=== PATIENT | female | born 1995 | race Caucasian/White ===

== ENCOUNTER 2016-10-15 10:05 | Day surgery (SDC) | payer BC ==
[~2016-10-15] VITALS: Ht 167.6 cm; Wt 89.8 kg
[~2016-10-15 10:05] MED LIST: ALBUTEROL; ATIVAN; DULERA 100 MCG8.8 GM INH; [UNRECOGNIZED DRUG - OTHER]
[2016-10-15] MEDS ORDERED: ALBUTEROL1.25 MG/3 INH (13:48)
[2016-10-15 13:50] VITALS: BP 105/60; Ht 167.6 cm; Wt 89.8 kg
[2016-10-15 14:01] LABS: HCG URINE NEGATIVE (NEGATIVE)
[2016-10-15] MEDS ORDERED: PERCOCET 10/3251 TA1 PO (15:03)
--- NOTE | 2016-10-17 15:22 | OP ---
PATIENT NAME: BENJY CONNOLLY MEDICAL RECORD: [id number] :89 LOCATION:D.OPS ADMISSION DATE: SURGEON: DEANN YAN MD DATE OF OPERATION: 10/15/2016 Orthopedic Surgery Operative Note PREOPERATIVE DIAGNOSIS: De Quervain's tenosynovitis of the right wrist. POSTOPERATIVE DIAGNOSES: De Quervain's tenosynovitis of the right wrist. PROCEDURE: De Quervain's release. SURGEON: Deann Yan MD ANESTHESIA: General. INTRAOPERATIVE COMPLICATIONS: None. SUMMARY OF PATHOLOGIC FINDINGS: She had a very tight extensor compartment consistent with diagnosis of Moo positive testing. OPERATIVE SUMMARY IN DETAIL: After obtaining the appropriate preoperative orthopedic surgery consent as well as anesthetic consultation, evaluation and clearance, the patient was brought to the operating room and placed on the operating table in supine position. After general laryngeal mask airway was administered, tourniquet was placed about the proximal aspect of the right upper extremity. Right upper extremity was then prepped and draped in routine sterile fashion. The arm was elevated and exsanguinated, tourniquet inflated to 250 mmHg. An incision was made over the radial styloid, taken down to the level of the extensor compartment. It was gently incised to find a substantial amount of synovitis. It was excised in its entirety. Synovitis was excised. Please note that the radial nerve was found and protected the entire case. Having completed this, irrigation was then followed by closure of the wound using 4-0 Prolene in interrupted fashion. The area was locally anesthetized with 0.25% Marcaine plain. Sterile dressings were applied. Tourniquet was deflated. The patient was awakened and taken to the recovery room in stable condition. All final needle and sponge counts were correct. TRANSINT:[id number] Voice Confirmation ID: [id number] DOCUMENT ID: [id number] DEANN YAN MD at 1522 CC: [id number] DICTATION DATE: 10/15/16 1459 PRODUCT OWNER: 10/16/16 0017 [facility] 10/15/16 [place] [address]
== END 2016-10-15 17:30 | disposition home or self-care (01) ==
LOC: D.OPS 10:05 → D.PAN 12:30 → D.OPS 12:30 → D.PAN 12:45 → D.OPS 14:45 → D.PAN 14:45 → D.OPS 17:30
PROVIDERS: Orthopaedic Surgery
DX: M65.4 Radial styloid tenosynovitis [de Quervain] (principal)

== ENCOUNTER 2018-07-24 11:08 | Day surgery (SDC) | payer OTHER, BC ==
[~2018-07-24] VITALS: Ht 170.2 cm; Wt 95.7 kg
[~2018-07-24 11:08] MED LIST changes: +ADVAIR HFA [SP]12 GM INH; +ALBUTEROL1.25 MG/3 INH; +LEXAPRO10 MG; +PERCOCET 10/3251 TA1 PO
[2018-07-24 12:01] LABS: HEMOGLOBIN 14.3 g/dL (12-16); MCV 88.2 fL (80.0-100.0); MEAN PLATELET VOLUME 9.4 fL (7.4-10.4); RBC 4.76 10x6/uL (4.00-5.40); RDW 12.4 % (11.5-14.5); WBC 6.8 10x3/uL (4.8-10.8)
[2018-07-24] MEDS ORDERED: AMBIEN10 MG PO (13:51)
[2018-07-24 13:54] VITALS: BP 105/63; Ht 170.2 cm; Wt 95.7 kg
[2018-07-24 14:19] LABS: HCG URINE NEGATIVE (NEGATIVE)
[2018-07-24] MEDS ORDERED: NORCO 10-325 TA1 TAB PO (16:03)
--- NOTE | 2018-07-25 14:30 | OP ---
PATIENT NAME: BENJY CONNOLLY MEDICAL RECORD: [id number] :[birth year] LOCATION:FILIBERTO ADMISSION DATE: SURGEON: DEANN YAN MD DATE OF OPERATION: 07/24/2018 PREOPERATIVE DIAGNOSIS: Radial styloid tenosynovitis of the left wrist. POSTOPERATIVE DIAGNOSIS: Radial styloid tenosynovitis of the left wrist. PROCEDURE: De Quervain's release of the left wrist. SURGEON: Deann Yan MD ANESTHESIA: General. INTRAOPERATIVE COMPLICATIONS: None. SUMMARY OF PATHOLOGIC FINDINGS: The patient had a tight first dorsal compartment consistent with the diagnosis and preoperative physical findings. OPERATIVE SUMMARY IN DETAIL: After obtaining the appropriate preoperative orthopedic surgery consent as well as anesthetic consultation, evaluation and clearance, the patient was brought to the operative suite, placed on the operating table in supine position. After adequate general laryngeal mask airway was administered, tourniquet was placed about the proximal aspect of the left upper extremity. Left upper extremity was then prepped and draped in routine sterile fashion. The arm was elevated and exsanguinated, tourniquet was inflated to 250 mmHg. An incision was made over the apex of the radial styloid, taken down the level of the first compartment. Superficial branch of the radial nerve was identified and retracted. The first dorsal compartment was released and the synovitis was noted and a portion was removed. After releasing the first dorsal interosseous compartment, the wound was closed in a running interlocked fashion using 4-0 Prolene. Sterile dressings were applied. Prior to applying sterile dressings; however, the area was locally infiltrated with 0.25% Marcaine with epinephrine. Sterile dressings were applied. Tourniquet was deflated. The patient was awakened and taken to recovery room in stable condition. All final needle and sponge counts were correct. TRANSINT:[id number] Voice Confirmation ID: [id number] DOCUMENT ID: [id number] FARRAH MARTINEZ, DEANN AQUINO at 1430 CC: [id number] DICTATION DATE: 07/24/18 1605 SPECIAL PROCEDURE TECH: 07/24/18 2140 [facility] 07/24/18 [place] [address]
== END 2018-07-24 17:50 | disposition home or self-care (01) ==
LOC: D.OPS 11:08 → D.PAN 14:15 → D.OPS 17:15
PROVIDERS: Anesthesiology; Orthopaedic Surgery
DX: M65.4 Radial styloid tenosynovitis [de Quervain] (principal)

== ENCOUNTER 2019-05-14 15:02 | Inpatient (IN) | payer OTHER, BC ==
[~2019-05-14] VITALS: Ht 167.6 cm; Wt 100.2 kg
[~2019-05-14 15:02] MED LIST changes: +AMBIEN10 MG PO; -LEXAPRO10 MG; +LEXAPRO10 MG PO; +NORCO 10-325 TA1 TAB PO
[2019-05-14 15:58] LABS: BASOPHILS 0.1 % (0-2); EOSINOPHILS 1.3 % (0-7); HEMATOCRIT 41.8 % (36.0-48.0); HEMOGLOBIN 14.1 g/dL (12-16); IMMATURE GRANULOCYTES 0.6 % (0-5); LYMPHOCYTES 23.1 % (15-50); MCH 29.8 pg (26.0-34.0); MCHC 33.7 g/dL (31.0-37.0); MCV 88.4 fL (80.0-100.0); MEAN PLATELET VOLUME 9.4 fL (7.4-10.4); MONOCYTES 8.3 % (2-11); NEUTROPHILS 66.6 % (40-80); PLATELET COUNT 313 10x3/uL (130-400); RBC 4.73 10x6/uL (4.00-5.40); RDW 12.9 % (11.5-14.5); WBC 13.9 10x3/uL (4.8-10.8)
[2019-05-14 16:00] VITALS: BP 121/73
[2019-05-14 16:02] LABS: CALC OSMOLALITY 278 mosm/kg (275-300); CALCIUM 9.2 mg/dL (8.5-10.1); CARBON DIOXIDE 25.9 mmol/L (21.0-32.0); CHLORIDE - SERUM 104 mmol/L (98-107); CREATININE - SERUM 0.8 mg/dL (0.6-1.3); GLUCOSE 108 mg/dL (74-106); POTASSIUM - SERUM 3.8 mmol/L (3.5-5.1); SODIUM 140 mmol/L (136-145); UREA NITROGEN 9 mg/dL (7-18); eGFR NON AFRICAN AMERICAN > 90 mL/min (90-120)
--- NOTE | 2019-05-14 16:14 | NUR ---
NOTIFIED BY LAB OF ELEVATED LACTIC ACID OF 2.7 CRITICAL LAB SHEET COMPLETED AND PLACED ON PT'S CHART. EDP MADE AWARE.
[2019-05-14 16:15] LABS: APTT 27.1 SECONDS (22.8-39.4); INR 0.98 (0.85-1.17); PROTIME 12.5 SECONDS (11.6-15.0)
[2019-05-14 16:20] LABS: ALBUMIN 3.7 g/dL (3.4-5.0); ALKALINE PHOSPHATASE 105 U/L (46-116); ALT (SGPT) 14 U/L (10-68); BILIRUBIN - TOTAL 0.19 mg/dL (0.2-1.3); CKMB 0.3 U/L (0.0-3.6); CREATINE KINASE 49 UL (21-215); PRO BNP 169 pg/mL (0-125); PROTEIN - SERUM 7.8 g/dL (6.4-8.2); TROPONIN-I < 0.017 ng/mL (0.000-0.060)
[2019-05-14 17:30] VITALS: BP 120/88
[2019-05-14] MEDS ORDERED: LEVOTHYROXINE75 MCG PO (18:42)
--- NOTE | 2019-05-14 18:48 | MORECARE ---
CASE MANAGEMENT DISCHARGE SUMMARY PATIENT: BENJY CONNOLLY UNIT: [id number] ADM DATE: 05/14/19 AGE: 23 : 95 SEX: F ROOM/BED: D.2240 AUTHOR: AIDEN BERMAN PHYSICIAN: REFERRING PHYSICIAN: JAMES RETANA MD DATE OF SERVICE: 05/14/19 Discharge Plan Patient Name: BENJY CONNOLLY Facility: [facility]:[place] : 1995 Planned Disposition: Home Anticipated Discharge Date: 05/18/19 Discharge Date: Expected LOS: 4 Initial Reviewer: [email or web address] Initial Review Date: 05/14/2019 Generated: 05/14/19 7:48 pm DCPIA - Discharge Planning Initial Assessment Updated by [email or web address]: Cecelia Celaya on 05/14/19 6:47 pm * Is the patient Alert and Oriented? Yes * PCP Dr. Maldonado * Pharmacy [facility] * Preadmission Environment Home with Family * ADLs Independent * Equipment Nebulizer * List name and contact numbers for known caregivers / representatives who currently or will assist patient after discharge: Panda Almanza katlynerie - [phone] Radha Connolly - [phone] * Verbal permission to speak to the caregivers and representatives has been obtained from the patient. Yes * Community resources currently utilized None * Additional services required to return to the preadmission environment? No * Can the patient safely return to the preadmission environment? Yes * Has this patient been hospitalized within the prior 30 days at any hospital? No Patient Name: BENJY CONNOLLY Page [id number] at 1848 All edits/amendments must be made on the electronic document DICTATION DATE: 05/14/191847 RADIO REPAIRER DOMESTIC: FARZANEH 05/14/191847 RPT#: [id number] DC DATE: STATUS: ADM IN [facility] [address] [place] [address] END OF REPORT
--- NOTE | 2019-05-14 19:09 | MORECARE ---
CASE MANAGEMENT DISCHARGE SUMMARY PATIENT: BENJY CONNOLLY UNIT: [id number] ADM DATE: 05/14/19 AGE: 23 : 95 SEX: F ROOM/BED: D.2240 AUTHOR: AIDEN BERMAN PHYSICIAN: REFERRING PHYSICIAN: JAMES RETANA MD DATE OF SERVICE: 05/14/19 Discharge Plan Patient Name: BENJY CONNOLLY Facility: [facility]:[place] : 1995 Planned Disposition: Home Anticipated Discharge Date: 05/18/19 Discharge Date: Expected LOS: 4 Initial Reviewer: [email or web address] Initial Review Date: 05/14/2019 Generated: 05/14/19 8:09 pm DCP- Discharge Planning Updated by [email or web address]: Cecelia Celaya on 05/14/19 6:[address] DC PLAN: Return home independently. ANTICIPATED DC NEEDS: discussed pulse ox and qualifications for O2 requirements. CM met with patient and her boyfriend to complete initial dc planning assessment. CM educated patient on the CM role and verbal consent given by patient to complete assessment. CM verified patient's address, phone number, and emergency contact phone numbers. Patient lives at home with her boyfriend. At discharge patient plans to return home and feels this is a safe discharge. Patient very winded and having difficulties answering questions. She can only answer in short words or phrases. She stated she has had 3 updrafts but that she was doing better. Cm asked if I needed to get the nurse caring for her and she stated no. CM discussed availability of home health, rehab services, and medical equipment. She stated she may need a pulse or or oxygen at vt. CM discussed that insurance does not cover pulse ox but informed her she could purchase one at [facility] or [facility]. She also stated she may need oxygen and cm discussed requirements to qualify for O2. She verbalized understanding. Patient denied further known discharge needs at this time. Transportation provider at discharge will be her boyfriend. CM will continue to follow and will assist as needed with dc plans/needs. Cecelia Celaya RN, [facility] DCPIA - Discharge Planning Initial Assessment Updated by [email or web address]: Cecelia Celaya on 05/14/19 6:47 pm * Is the patient Alert and Oriented? Yes * PCP Dr. Maldonado * Pharmacy [facility] * Preadmission Environment Home with Family * ADLs Independent * Equipment Nebulizer * List name and contact numbers for known caregivers / representatives who currently or will assist patient after discharge: Panda cortezienanai - [phone] Radha Connolly - [phone] * Verbal permission to speak to the caregivers and representatives has been obtained from the patient. Yes * Community resources currently utilized None * Additional services required to return to the preadmission environment? No * Can the patient safely return to the preadmission environment? Yes * Has this patient been hospitalized within the prior 30 days at any hospital? No Last DP export: 05/14/19 5:48 Patient Name: BENJY CONNOLLY Page [id number] at 1909 All edits/amendments must be made on the electronic document DICTATION DATE: 05/14/191908 MACHINE FEEDER RAW STOCK: FARZANEH 05/14/191908 RPT#: [id number] DC DATE: STATUS: ADM IN [facility] [address] [place] [address] END OF REPORT
[2019-05-14 19:30] VITALS: BP 128/87
--- NOTE | 2019-05-14 21:20 | NUR ---
A&O X 4, AMBULATORY AD RAFAL. VS STABLE. PT APPEARS SOB, SPO2 97% ON ROOM AIR. FAMILY AT BEDSIDE. REQUESTS TO RECEIVE BENADRYL AT A LATER TIME. NICOTINE PATCH APPLIED TO RIGHT UPPER ARM. PT REPORTS SHE CURRENTLY HAS A YEAST INFECTION. DENIES FURTHER NEEDS AT THIS TIME, WILL CONTINUE TO MONITOR.
[2019-05-14 22:34] VITALS: BP 128/87; BMI 32.3
[2019-05-15] VITALS: BP 129/79
[2019-05-15 00:33] LABS: APPEARANCE CLEAR (CLEAR); BILIRUBIN NEGATIVE (NEGATIVE); COLOR YELLOW (YELLOW); GLUCOSE NEGATIVE (NEGATIVE); KETONE NEGATIVE (NEGATIVE); NITRITE NEGATIVE (NEGATIVE); PROTEIN NEGATIVE (NEGATIVE); SPECIFIC GRAVITY 1.015 (1.005-1.020); UROBILINOGEN NORMAL (NORMAL)
[2019-05-15 00:34] LABS: BACTERIA FEW /hpf (NEGATIVE); EPITHELIAL CELLS 0-5 /hpf (0-5); RED CELLS - URINE 0-5 /hpf (0-5); WHITE CELLS - URINE 0-5 /hpf (NEGATIVE)
[2019-05-15 06:37] LABS: BASOPHILS 0 % (0-2); EOSINOPHILS 0 % (0-7); HEMATOCRIT 38.4 % (36.0-48.0); HEMOGLOBIN 12.3 g/dL (12-16); IMMATURE GRANULOCYTES 0.5 % (0-5); LYMPHOCYTES 14.3 % (15-50); MCH 28.9 pg (26.0-34.0); MEAN PLATELET VOLUME 9.4 fL (7.4-10.4); MONOCYTES 2.2 % (2-11); PLATELET COUNT 258 10x3/uL (130-400); RBC 4.25 10x6/uL (4.00-5.40); RDW 13.1 % (11.5-14.5)
[2019-05-15 06:47] LABS: MCV 90.4 fL (80.0-100.0); WBC 7.9 10x3/uL (4.8-10.8)
[2019-05-15 07:11] LABS: CALC OSMOLALITY 282 mosm/kg (275-300); CALCIUM 8.4 mg/dL (8.5-10.1); CHLORIDE - SERUM 106 mmol/L (98-107); CREATININE - SERUM 0.7 mg/dL (0.6-1.3); GLUCOSE 187 mg/dL (74-106); MAGNESIUM - SERUM 1.9 mg/dL (1.8-2.4); PHOSPHOROUS 3.8 mg/dL (2.5-4.9); POTASSIUM - SERUM 4.6 mmol/L (3.5-5.1); SODIUM 140 mmol/L (136-145); THYROID STIMULATING HORMONE 2.31 uIU/mL (0.36-3.74); UREA NITROGEN 10 mg/dL (7-18); eGFR NON AFRICAN AMERICAN > 90 mL/min (90-120)
[2019-05-15 08:07] VITALS: BP 137/85
--- NOTE | 2019-05-15 09:10 | NUR ---
PT SITTING UP IN BED. RESP SHALLOW AND RAPID. PT VOICES JUST HAVING RETURNED TO BED FROM BR. PT RESP SLOW PT REST. IV TO RIGHT HAND WITH NS @ 50ML/HR INFUSING VIA PUMP. SITE WITHOUT REDNESS OR EDEMA. REPORTS PAIN 10/10, DISCUSSED NEXT TIME PAIN MED CAN BE ADMINISTERED PER MD ORDERS. PT VOICES UNDERSTANDING. DENIES FURTHER NEEDS AT THIS TIME. CL WITHIN REACH. ENCOURAGED TO CALL WITH NEEDS. CONTINUE POC
[2019-05-15 12:58] VITALS: BP 154/82
[2019-05-15 17:43] VITALS: BP 141/81
[2019-05-15 21:16] VITALS: BP 152/93
[2019-05-16 01:23] VITALS: BP 128/75
--- NOTE | 2019-05-16 05:45 | NUR ---
PATIETIENTS HEART RATE WAS RUNNING IN THE 40'S, PATIENT DIAPHORETIC AND SHORT OF BREATHE. PATIENT COMPLAINING OF CHEST PAIN. TALKED TO CHARGE NURSE. 0554 CALLED A RAPID RESPONSE. CHECKED PATIENTS HEART ENZYMES AND RAN AN EKG.WAISTED WHOLE BOTTLE OF LORAZEPAM DUE TO WAS NOT ABLE TO GIVE PATIENT ANY MEDICINE AT THIS TIME BECAUSE OF LOW HEART RATE.
[2019-05-16 06:42] LABS: BASOPHILS 0.1 % (0-2); EOSINOPHILS 0 % (0-7); HEMATOCRIT 41.3 % (36.0-48.0); HEMOGLOBIN 13.4 g/dL (12-16); IMMATURE GRANULOCYTES 1.1 % (0-5); LYMPHOCYTES 12.5 % (15-50); MCHC 32.4 g/dL (31.0-37.0); MCV 92.4 fL (80.0-100.0); MONOCYTES 6.3 % (2-11); PLATELET COUNT 356 10x3/uL (130-400); RBC 4.47 10x6/uL (4.00-5.40); RDW 13.5 % (11.5-14.5); WBC 16.8 10x3/uL (4.8-10.8)
[2019-05-16 07:18] LABS: CALC OSMOLALITY 284 mosm/kg (275-300); CALCIUM 8.9 mg/dL (8.5-10.1); CARBON DIOXIDE 24.5 mmol/L (21.0-32.0); CHLORIDE - SERUM 107 mmol/L (98-107); CKMB 0.3 U/L (0.0-3.6); CREATINE KINASE 35 UL (21-215); CREATININE - SERUM 0.7 mg/dL (0.6-1.3); GLUCOSE 142 mg/dL (74-106); MAGNESIUM - SERUM 2.1 mg/dL (1.8-2.4); PHOSPHOROUS 3.6 mg/dL (2.5-4.9); POTASSIUM - SERUM 4.9 mmol/L (3.5-5.1); SODIUM 142 mmol/L (136-145); TROPONIN-I 0.022 ng/mL (0.000-0.060); eGFR NON AFRICAN AMERICAN > 90 mL/min (90-120)
[2019-05-16 07:20] LABS: UREA NITROGEN 13 mg/dL (7-18)
[2019-05-16 08:45] VITALS: BP 134/76
[2019-05-16 12:32] VITALS: BP 156/87
[2019-05-16 16:43] VITALS: BP 135/83
[2019-05-16 19:30] VITALS: BP 153/82
--- NOTE | 2019-05-16 20:00 | NUR ---
SITTING UP IN CHAIR AT BEDSIDE WORKING ON A CRAFT. ALERT AND ORIENTED X4. ANXIOUS AND IRRITABLE. REQUESTED ATIVAN. WAS MEDICATED WITH MORPHINE AT 1913 FOR C/O CHEST PAIN PER PREVIOUS NURSE AND IT WAS EXPLAINED TO PT THAT DUE TO BRADYCARDIA THAT ATIVAN AND MORPHINE SHOULD BE GIVEN ATLEAST AN HOUR APART. EXPLAINED THIS AGAIN TO PT. ATTEMPTED TO CALM PT BY EXPLAINING THAT NEBS AND STEROIDS WOULD INCREASE ANXIETY AND NERVOUSNESS THESE ARE SIDE EFFECTS OF THE MEDS. SHE VERBALIZED UNDERSTANDING. O2 @ 2LNC. NONPROD COUGH NOTED. RESP IRREG AND LABORED AT TIMES. BBS EXP WHEEZES. NS @ 30 MLHR INFUSING IN RT HAND WITHOUT DIFF. PM MEDS GIVEN AT THIS TIME. REQEUSTED AMBIEN BE GIVEN LATER. ASKED PT IF SHE HAD TAKEN AMBIEN BEFORE AND SHE STATED THAT SHE HAD. CL IN REACH. TELEMETRY SHOWS SB.
--- NOTE | 2019-05-16 20:30 | NUR ---
CARE OF PATIENT ASSUMED. REPORT RECEIVED.
--- NOTE | 2019-05-16 20:33 | NUR ---
GAVE 1 MG ATIVAN IVP PER REQUEST FOR ANXIETY. PT VERY ANXIOUS AND TEARFUL. WILL MONITOR CLOSLEY FOR EFFECTIVENESS. FAMILY MEMBERS ARE AT BEDSIDE.
--- NOTE | 2019-05-16 21:10 | NUR ---
HS MEDICATIONS GIVEN. SPO2 96% ON 2L AND PULSE 57
[2019-05-17 00:30] VITALS: BP 112/64
[2019-05-17 04:30] VITALS: BP 140/71
[2019-05-17 06:33] LABS: BASOPHILS 0.1 % (0-2); EOSINOPHILS 0 % (0-7); HEMATOCRIT 39.2 % (36.0-48.0); HEMOGLOBIN 12.3 g/dL (12-16); IMMATURE GRANULOCYTES 1.4 % (0-5); LYMPHOCYTES 17.1 % (15-50); MCHC 31.4 g/dL (31.0-37.0); MCV 92.5 fL (80.0-100.0); MEAN PLATELET VOLUME 9.6 fL (7.4-10.4); MONOCYTES 6.3 % (2-11); NEUTROPHILS 75.1 % (40-80); PLATELET COUNT 311 10x3/uL (130-400); RBC 4.24 10x6/uL (4.00-5.40); RDW 13.5 % (11.5-14.5)
[2019-05-17 06:34] LABS: WBC 11.8 10x3/uL (4.8-10.8)
[2019-05-17 07:01] LABS: CALC OSMOLALITY 281 mosm/kg (275-300); CALCIUM 8.5 mg/dL (8.5-10.1); CARBON DIOXIDE 28.2 mmol/L (21.0-32.0); CHLORIDE - SERUM 106 mmol/L (98-107); CREATININE - SERUM 0.8 mg/dL (0.6-1.3); GLUCOSE 146 mg/dL (74-106); MAGNESIUM - SERUM 2.1 mg/dL (1.8-2.4); PHOSPHOROUS 3.3 mg/dL (2.5-4.9); POTASSIUM - SERUM 4.5 mmol/L (3.5-5.1); SODIUM 140 mmol/L (136-145); UREA NITROGEN 13 mg/dL (7-18); eGFR NON AFRICAN AMERICAN > 90 mL/min (90-120)
[2019-05-17 07:59] VITALS: BP 143/96
--- NOTE | 2019-05-17 10:41 | NUR ---
PT ALERT X 4. EXPIRATORY WHEEZES TO ALL STUBBS X DIMINISHED TO RLL, 2L O2 PER NC. TELEMETRY IN PLACE. IV TO RIGHT HAND, PATENT, DRESSING CDI. FAMILY AT BEDSIDE. BED LOW, CALL LIGHT IN REACH. NO OTHER NEEDS AT THIS TIME.
[2019-05-17 11:39] VITALS: BP 128/83
[2019-05-17 16:31] VITALS: BP 127/50
[2019-05-17 20:01] VITALS: BP 150/81
--- NOTE | 2019-05-17 20:41 | NUR ---
REFUSED JOBIEN AT THIS TIME STATED SHE WANTS IT LATER.AWATTING FIXED INCOME TRADING VICE PRESIDENT TO PULL SOLU-MEDROL SO IT MAY BE GIVEN.
[2019-05-18 00:30] VITALS: BP 108/66
[2019-05-18 05:00] VITALS: BP 128/75
[2019-05-18 06:03] LABS: BASOPHILS 0.1 % (0-2); EOSINOPHILS 0 % (0-7); HEMATOCRIT 42.9 % (36.0-48.0); HEMOGLOBIN 13.5 g/dL (12-16); IMMATURE GRANULOCYTES 2.6 % (0-5); LYMPHOCYTES 18.1 % (15-50); MCH 28.9 pg (26.0-34.0); MCHC 31.5 g/dL (31.0-37.0); MCV 91.9 fL (80.0-100.0); MEAN PLATELET VOLUME 9.5 fL (7.4-10.4); NEUTROPHILS 73.2 % (40-80); PLATELET COUNT 292 10x3/uL (130-400); RBC 4.67 10x6/uL (4.00-5.40); WBC 10.8 10x3/uL (4.8-10.8)
[2019-05-18 06:33] LABS: CALC OSMOLALITY 282 mosm/kg (275-300); CALCIUM 8.8 mg/dL (8.5-10.1); CARBON DIOXIDE 32.5 mmol/L (21.0-32.0); CHLORIDE - SERUM 104 mmol/L (98-107); CREATININE - SERUM 0.9 mg/dL (0.6-1.3); GLUCOSE 144 mg/dL (74-106); MAGNESIUM - SERUM 2.4 mg/dL (1.8-2.4); PHOSPHOROUS 3.7 mg/dL (2.5-4.9); POTASSIUM - SERUM 4.4 mmol/L (3.5-5.1); SODIUM 140 mmol/L (136-145); UREA NITROGEN 14 mg/dL (7-18); eGFR NON AFRICAN AMERICAN 82 mL/min (90-120)
--- NOTE | 2019-05-18 07:35 | NUR ---
PT RESTING IN BED WITH EYES CLOSED, EASILY AROUSED TO SPEECH, COMPANY AT THE BEDSIDE. IV LOCATED TO LEFT HAND RUNNING NS @ 30ML/HR. NO S/S OF DISTRESS AT THIS TIME, DENIES NEEDS, WILL CONT TO MONITOR.
[2019-05-18 08:21] VITALS: BP 147/88
--- NOTE | 2019-05-18 11:45 | NUR ---
PT STATES SHE WOULD LIKE ME TO LET SOMEBODY KNOW THAT THE [facility] IS NOT CUTTING IT FOR HER PAIN, INFORMED ISMAEL GUADALUPE APN. DENIES ANY OTHER NEEDS AT THIS TIME, WILL CONT TO MONITOR.
[2019-05-18 13:15] VITALS: BP 147/78
[2019-05-18 13:59] VITALS: Ht 167.6 cm; Wt 100.2 kg
--- NOTE | 2019-05-18 16:30 | NUR ---
PT ASKED ABOUT OUR POLICY ON EMOTIONAL SUPPORT ANIMALS BEING ALLOWED IN THE HOSPITAL, TOLD HER I WOULD HAVE TO TALK TO MY CONTRACTS LAW PROFESSOR I WAS UNAWARE OF OFFICIAL RULES REGARDING THE SUBJECT. WHEN I ASKED NURSE CONTRACTS LAW PROFESSOR, JUDY, SHE STATES THAT IT IS AN INFECTION CONTROL ISSUE. PT THEN STATES HAS TOLD HER SHE CAN HAVE IT, I INFORMED PT THAT I WOULD LET MY CONTRACTS LAW PROFESSOR KNOW. I INFORMED NURSE CONTRACTS LAW PROFESSOR OF THIS CONVERSATION, SHE STATES AGAIN IT IS AN INFECTION CONTROL ISSUE.
--- NOTE | 2019-05-18 18:50 | NUR ---
PT HAS DOG IN THE ROOM.
[2019-05-18 20:53] VITALS: BP 107/70
[2019-05-19 01:15] VITALS: BP 110/66
[2019-05-19 04:44] VITALS: BP 106/60
[2019-05-19 06:26] LABS: BASOPHILS 0.3 % (0-2); EOSINOPHILS 1.4 % (0-7); HEMATOCRIT 38.6 % (36.0-48.0); HEMOGLOBIN 12.2 g/dL (12-16); IMMATURE GRANULOCYTES 4.2 % (0-5); LYMPHOCYTES 47.4 % (15-50); MCH 28.8 pg (26.0-34.0); MCHC 31.6 g/dL (31.0-37.0); MCV 91.3 fL (80.0-100.0); MEAN PLATELET VOLUME 9.2 fL (7.4-10.4); MONOCYTES 8.4 % (2-11); NEUTROPHILS 38.3 % (40-80); RBC 4.23 10x6/uL (4.00-5.40)
--- NOTE | 2019-05-19 06:29 | NUR ---
I have reviewed this patient and I concur with the Shift Assessment completed by the Licensed Practical Nurse today this shift.
[2019-05-19 06:39] LABS: CALCIUM 8.1 mg/dL (8.5-10.1); CARBON DIOXIDE 32.9 mmol/L (21.0-32.0); CHLORIDE - SERUM 107 mmol/L (98-107); CREATININE - SERUM 0.8 mg/dL (0.6-1.3); MAGNESIUM - SERUM 2.1 mg/dL (1.8-2.4); POTASSIUM - SERUM 3.8 mmol/L (3.5-5.1); SODIUM 143 mmol/L (136-145); eGFR NON AFRICAN AMERICAN > 90 mL/min (90-120)
[2019-05-19 06:47] LABS: CALC OSMOLALITY 285 mosm/kg (275-300); GLUCOSE 89 mg/dL (74-106); PHOSPHOROUS 4.7 mg/dL (2.5-4.9); UREA NITROGEN 18 mg/dL (7-18)
[2019-05-19 07:13] LABS: PLATELET COUNT 209 10x3/uL (130-400); WBC 7.9 10x3/uL (4.8-10.8)
--- NOTE | 2019-05-19 07:57 | NUR ---
193) NOT IN ROOM OFF GOING NURSE STATES OUTSIDE WITH FAMILY.1999) RETURNED TO ROOM ON ENTERING ROOM CRYING STATES THIS PAIN MED IS NOT WORKING FOR ME AT ALL.SUE SCHNEIDER CALLED AND NOTIFIED OF ISSUE WITH NO RELIEF FROM CURRENT CHGES. IN ORAL PAIN MED.NO NEW ORDERS REC'D. 2099) DR. LAU CALLED PER MOTHERS REQUEST.2039) REC'D CALL FROM DR LAU NO NEW ORDERS REC'D. WILL CONTINUE TO MONITOR FOR ANY CHGES AND FOLLOW CURRENT PLAN OF CARE
--- NOTE | 2019-05-19 07:57 | NUR ---
PT RESTING IN BED WITH EYES CLOSED, WITH COMPANY AT THE BEDSIDE. NO S/S OF DISTRESS NOTED AT THIS TIME. WILL CONT TO MONITOR.
[2019-05-19 08:35] VITALS: BP 97/56
--- NOTE | 2019-05-19 11:03 | NUR ---
PT IS IN TEARS, STATES THE PAIN MEDS ARE STILL NOT WORKING.
[2019-05-19 12:15] VITALS: BP 144/64
[2019-05-19] MEDS ORDERED: PREDNISONE10 MG PO (16:19)
[2019-05-19] MEDS ORDERED: LEVOFLOXACIN500 MG PO (16:26)
[2019-05-19 16:51] VITALS: BP 144/61
[2019-05-19] MEDS ORDERED: ALBUTEROL SULF8.5 GM INH (16:54)
[2019-05-19] MEDS ORDERED: ADVAIR HFA [SP]12 GM INH (16:54)
[2019-05-19] MEDS ORDERED: MUCINEX DM ER1 EAC1 PO (16:54)
[2019-05-19] MEDS ORDERED: ALBUTEROL1.25 MG/3 INH (16:54)
[2019-05-19] MEDS ORDERED: SINGULAIR10 MG PO (16:54)
--- NOTE | 2019-05-19 17:27 | NUR ---
PT DC`D HOME WITH .
--- NOTE | 2019-05-21 07:02 | MORECARE ---
CASE MANAGEMENT DISCHARGE SUMMARY PATIENT: BENJY CONNOLLY UNIT: [id number] ADM DATE: 05/14/19 AGE: 23 : 95 SEX: F ROOM/BED: D.2240 AUTHOR: AIDEN BERMAN PHYSICIAN: REFERRING PHYSICIAN: JAMES RETANA MD DATE OF SERVICE: 05/21/19 Discharge Plan Patient Name: BENJY CONNOLLY Facility: [facility]:[place] : 1995 Planned Disposition: Home Anticipated Discharge Date: 05/18/19 Discharge Date: 05/19/2019 Expected LOS: 4 Initial Reviewer: [email or web address] Initial Review Date: 05/14/2019 Generated: 05/21/19 8:02 am DCP- Discharge Planning Updated by [email or web address]: Cecelia Celaya on 05/14/19 6:[address] DC PLAN: Return home independently. ANTICIPATED DC NEEDS: discussed pulse ox and qualifications for O2 requirements. CM met with patient and her boyfriend to complete initial dc planning assessment. CM educated patient on the CM role and verbal consent given by patient to complete assessment. CM verified patient's address, phone number, and emergency contact phone numbers. Patient lives at home with her boyfriend. At discharge patient plans to return home and feels this is a safe discharge. Patient very winded and having difficulties answering questions. She can only answer in short words or phrases. She stated she has had 3 updrafts but that she was doing better. Cm asked if I needed to get the nurse caring for her and she stated no. CM discussed availability of home health, rehab services, and medical equipment. She stated she may need a pulse or or oxygen at dc. CM discussed that insurance does not cover pulse ox but informed her [facility]. She also stated she may need oxygen and cm discussed requirements to qualify for O2. She verbalized understanding. Patient denied further known discharge needs at this time. Transportation provider at discharge will be her boyfriend. CM will continue to follow and will assist as needed with dc plans/needs. Cecelia Celaya RN, [facility] DCPIA - Discharge Planning Initial Assessment Updated by [email or web address]: Cecelia Celaya on 05/14/19 6:47 pm * Is the patient Alert and Oriented? Yes * PCP Dr. Maldonado * Pharmacy [facility] * Preadmission Environment Home with Family * ADLs Independent * Equipment Nebulizer * List name and contact numbers for known caregivers / representatives who currently or will assist patient after discharge: Panda pottsfrienanai - [phone] Radha Connolly - [phone] * Verbal permission to speak to the caregivers and representatives has been obtained from the patient. Yes * Community resources currently utilized None * Additional services required to return to the preadmission environment? No * Can the patient safely return to the preadmission environment? Yes * Has this patient been hospitalized within the prior 30 days at any hospital? No Last DP export: 05/14/19 6:09 Patient Name: BENJY CONNOLLY Page [id number] at 0702 All edits/amendments must be made on the electronic document DICTATION DATE: 05/21/19701 BANKRUPTCY PARALEGAL: FARZANEH 05/21/19701 RPT#: [id number] DC DATE:05/19/19 STATUS: DIS IN [facility] [address] [place] [address] END OF REPORT
== END 2019-05-19 17:28 | disposition home or self-care (01) | DRG 202 ==
LOC: D.ER 15:02 → D.MS 17:57
PROVIDERS: Family Medicine; ADMIT Internal Medicine Nephrology; ATTEND Internal Medicine Nephrology
DX: J45.901 Unspecified asthma with (acute) exacerbation (principal); F17.203 Nicotine dependence unspecified, with withdrawal; E87.3 Alkalosis; E03.9 Hypothyroidism, unspecified; G47.00 Insomnia, unspecified; F41.8 Other specified anxiety disorders; J20.9 Acute bronchitis, unspecified; E06.3 Autoimmune thyroiditis

== ENCOUNTER 2019-07-22 16:14 | Inpatient (IN) | payer BC ==
[~2019-07-22] VITALS: Ht 167.6 cm; Wt 104.5 kg
[~2019-07-22 16:14] MED LIST changes: +ALBUTEROL SULF8.5 GM INH; +LEVOFLOXACIN500 MG PO; +LEVOTHYROXINE75 MCG PO; +MUCINEX DM ER1 EAC1 PO; +PREDNISONE10 MG PO; +SINGULAIR10 MG PO
[2019-07-22 18:06] LABS: BASOPHILS 0.1 % (0-2); EOSINOPHILS 0.8 % (0-7); HEMATOCRIT 48.9 % (36.0-48.0); HEMOGLOBIN 16.3 g/dL (12-16); IMMATURE GRANULOCYTES 0.3 % (0-5); LYMPHOCYTES 20.5 % (15-50); MCH 29.8 pg (26.0-34.0); MCHC 33.3 g/dL (31.0-37.0); MCV 89.4 fL (80.0-100.0); MEAN PLATELET VOLUME 9.5 fL (7.4-10.4); MONOCYTES 6.3 % (2-11); RBC 5.47 10x6/uL (4.00-5.40); RDW 13.4 % (11.5-14.5); WBC 18.1 10x3/uL (4.8-10.8)
[2019-07-22 18:14] LABS: PLATELET COUNT 252 10x3/uL (130-400)
[2019-07-22 18:22] LABS: APPEARANCE CLEAR (CLEAR); BILIRUBIN NEGATIVE (NEGATIVE); COLOR YELLOW (YELLOW); GLUCOSE NEGATIVE (NEGATIVE); KETONE NEGATIVE (NEGATIVE); NITRITE NEGATIVE (NEGATIVE); PROTEIN NEGATIVE (NEGATIVE); SPECIFIC GRAVITY 1.015 (1.005-1.020); UROBILINOGEN NORMAL (NORMAL)
[2019-07-22 18:23] LABS: UDS - AMPHET POSITIVE QUAL (NEGATIVE); UDS - BARB NEGATIVE QUAL (NEGATIVE); UDS - BENZO NEGATIVE QUAL (NEGATIVE); UDS - COCAINE NEGATIVE QUAL (NEGATIVE); UDS - OPIATE NEGATIVE QUAL (NEGATIVE); UDS - PCP NEGATIVE QUAL (NEGATIVE); UDS - THC NEGATIVE QUAL (NEGATIVE)
[2019-07-22 18:35] LABS: CALC OSMOLALITY 282 mosm/kg (275-300); CALCIUM 9.4 mg/dL (8.5-10.1); CARBON DIOXIDE 27.4 mmol/L (21.0-32.0); CHLORIDE - SERUM 102 mmol/L (98-107); CREATININE - SERUM 0.9 mg/dL (0.6-1.3); GLUCOSE 114 mg/dL (74-106); POTASSIUM - SERUM 3.3 mmol/L (3.5-5.1); SODIUM 141 mmol/L (136-145); UREA NITROGEN 14 mg/dL (7-18); eGFR NON AFRICAN AMERICAN 82 mL/min (90-120)
[2019-07-22 18:40] LABS: ALBUMIN 4.6 g/dL (3.4-5.0); ALKALINE PHOSPHATASE 111 U/L (46-116); ALT (SGPT) 17 U/L (10-68); BILIRUBIN - TOTAL 0.25 mg/dL (0.2-1.3); PROTEIN - SERUM 8.7 g/dL (6.4-8.2)
[2019-07-22 18:51] VITALS: BP 121/809
--- NOTE | 2019-07-22 20:35 | NUR ---
REPORT CALLED TO MARIAN ON THE FLOOR, ROOM DIRTY AT THIS TIME.
--- NOTE | 2019-07-22 22:00 | NUR ---
PATIENT ARRIVED TO FLOOR. PATIENT IS ALERT AND ORIENTED, RESTING COMFORTABLY IN BED. RESPIRATIONS ARE EVEN AND UNLABORED. NO S/S OF DISTRESS. NO C/OPAIN AT THIS TIME. CALL LIGHT WITHIN REACH.
--- NOTE | 2019-07-22 22:30 | NUR ---
PATIENT REQUESTED THAT I DANIEL AN SPEAK WITH MD TILE AND MARBLE SETTER REGARDING PATIENT MEDICATION. PAGED AND SPOKE WITH MIKE SCHNEIDER APN REGARDING PATIENT MEDICATION. PATIENT STATED THAT SHE DOES NOT HAVE HER SUBOXONE AND THAT SHE LONGER TAKES THAT. SUBOXONE D/C'D. ORDERS GIVEN TO D/C 2 MG MORPHINE AND ORDER 4 MG MORPHINE IV.
[2019-07-22 23:58] VITALS: Ht 167.6 cm; Wt 104.5 kg
[2019-07-23 00:30] VITALS: BP 124/73
--- NOTE | 2019-07-23 01:00 | NUR ---
PATIENT CALLED STATED THAT SHE WAS IN PAIN AND REQUESTED HER MORPHINE. MORPHINE ADMINISTRATED ORDERED. APPROX. 0130 PT. CALLED STATED THAT THE MORPHINE WAS NOT HELPING WITH HER PAIN. 0125 PAGED MIKE SCHNEIDER APN.
--- NOTE | 2019-07-23 01:34 | NUR ---
WENT BACK TO PATIENT ROOM TO LET HER KNOW THAT I PUT PAGE OUT. PATIENT IS SLEEPING.
--- NOTE | 2019-07-23 01:38 | NUR ---
SPOKE WITH MIKE SCHNEIDER APN. NO NEW ORDERS GIVEN.
[2019-07-23 05:08] LABS: BASOPHILS 0 % (0-2); EOSINOPHILS 0 % (0-7); HEMATOCRIT 40.3 % (36.0-48.0); HEMOGLOBIN 13.3 g/dL (12-16); IMMATURE GRANULOCYTES 0.3 % (0-5); LYMPHOCYTES 10.3 % (15-50); MCH 29.4 pg (26.0-34.0); MEAN PLATELET VOLUME 9.7 fL (7.4-10.4); MONOCYTES 3.8 % (2-11); NEUTROPHILS 85.6 % (40-80); PLATELET COUNT 258 10x3/uL (130-400); RBC 4.53 10x6/uL (4.00-5.40); RDW 13.5 % (11.5-14.5)
[2019-07-23 05:18] LABS: WBC 9.7 10x3/uL (4.8-10.8)
[2019-07-23 05:33] LABS: C-REACTIVE PROTEIN 1.2 mg/dL (0.0-0.9); CALCIUM 8.5 mg/dL (8.5-10.1); CARBON DIOXIDE 28.3 mmol/L (21.0-32.0); CHLORIDE - SERUM 105 mmol/L (98-107); CREATININE - SERUM 0.8 mg/dL (0.6-1.3); MAGNESIUM - SERUM 1.9 mg/dL (1.8-2.4); PHOSPHOROUS 3.6 mg/dL (2.5-4.9); PRO BNP 43 pg/mL (0-125); SODIUM 140 mmol/L (136-145); THYROID STIMULATING HORMONE 4.06 uIU/mL (0.36-3.74); UREA NITROGEN 14 mg/dL (7-18); eGFR NON AFRICAN AMERICAN > 90 mL/min (90-120)
[2019-07-23 05:34] LABS: CALC OSMOLALITY 283 mosm/kg (275-300); GLUCOSE 169 mg/dL (74-106); POTASSIUM - SERUM 4.6 mmol/L (3.5-5.1)
--- NOTE | 2019-07-23 07:10 | NUR ---
REPORT RECEIVED FROM APICULTURIST AND PATIENT CARE ASSUMED. PATIENT LAYING IN BED ON RT SIDE WITH EYES CLOSED AND BREATHING EVENLY. WILL CONTINUE WITH PLAN OF CARE. SR UP X 2 BED IN LOW POSITION AND CALL LIGHT IN REACH.
[2019-07-23 07:27] LABS: ERYTHROCYTE SEDIMENTATION RATE 10 mm/hr (0-20)
[2019-07-23 07:46] VITALS: BP 115/63
--- NOTE | 2019-07-23 08:45 | NUR ---
CALLED TO PATIENTS ROOM. PATIENT SITTING UP IN BED . PATIENT IS TEARFUL AND SPEAKING QUIETLY. PATIENT STATES THAT SHE IS HURTING AND MORPHINE 4 MG DOES NOT HELP HER DUE TO SUBOXONE USE. PATIENT STATES THAT ONLY MORPHINE 6 MG HELPS. PATIENT ALSO STATES THAT THIS HAPPENS EVERY TIME. SPENT SEVERAL MINUTES GIVING REASURRANCE AND THERAPEUTIC COMMUNICATION TECHNIQUES. INFORMED PATIENT THAT SHE CAN HAVE MORPHINE 4 MG ORDERED NOW AND ATIVAN NOW AND THEN I WILL CALL DR REGARDING DOSAGE CHANGE.
--- NOTE | 2019-07-23 09:15 | NUR ---
MEDICATED PATIENT PER MAR. PATIENT LAYING IN BED AND IS CALM. WILL CONTINUE TO MONITOR. SR UP X 2 BED IN LOW POSITION AND CALL LIGHT IN REACH.
--- NOTE | 2019-07-23 10:30 | NUR ---
CALLED TO PATIENTS ROOM. PATIENT REQUESTING TO WALK AROUND THE UNIT. PATIENT AMBULATING IN HW TOLERATING WELL. . WILL CONTINUE TO MONITOR.
--- NOTE | 2019-07-23 11:00 | NUR ---
CALLED APARNA AVILEZ WITH DR BURLESON. EXPLAINED THAT PATIENT REQUESTING MORPHINE 6 MG . INFORMED THAT PATIENT STATES SHE TAKES SUBOXONE AND MORPHINE 4 MG WILL NOT WORK ONLY MORPHINE 6 MG. LINDY GAVE NEW ORDER FOR TORADOL 15 MG ONLY. INFORMED PATIENT. PATIENT STATES THAT TORADOL DOES NOT HELP AND SHE WILL SPEAK WITH DR BURLESON WHEN HE IS ON UNIT. PATIENT IS STABLE AND VSS. WILL CONTINUE TO MONITOR. SR UP X 2 BED IN LOW POSITION AND CALL LIGHT IN REACH.
[2019-07-23 11:45] VITALS: BP 130/84
--- NOTE | 2019-07-23 11:53 | NUR ---
PATIENT RSTING QUIETLY IN ROOM WITH EYS CLOSED AND BREATHING EVENLY. WILL CONTINUE TO MONITOR.
--- NOTE | 2019-07-23 13:58 | NUR ---
DR BURLESON IN ROOM. NEW ORDERS RECEIVED.
--- NOTE | 2019-07-23 14:15 | NUR ---
SITTING AT NS STATION AND HEARD LOUD CRYING COMING FROM PT ROOM. ENTERED ROOM AND COMMUNICATIONS AND SIGNALS SUPERVISOR VERO LEZAMA IN ROOM. PATIENT SITTING UP IN BED CRYING LOUDLY, ROCKING BACK AND FORTH. PATIENT STSTES THAT SHE RECEIVED 6 MG OF MORPHINE LAST TIME AND THAT SHE IS HURTING AND NO ONE UNDERSTANDS OR WILL HELP HER. GAVE REASSURANCE AND ATTEMPTED TO CALM PATIENT WITHOUT SUCCESS. OFFERED PATIENT TORADOL AND SUBONE FOR PAIN. PATIENT S LOUDLY STATES NO THOSE MEDS DONT HELP MY PAIN. PER AUG ORDER GAVE PATIENT ATIVAN 1 MG IV. COMMUNICATIONS AND SIGNALS SUPERVISOR JG IN ROOM.
--- NOTE | 2019-07-23 14:45 | NUR ---
PATIENT AMUBLATING IN HALLWAY STILL SOMEWHAT TEARFUL BUT OTHERWISE APPEARS CALM.
[2019-07-23 15:38] VITALS: BP 121/68
--- NOTE | 2019-07-23 16:45 | NUR ---
PATIENT AMBULATING IN HALLWAY. PATIENT APPEARS CALM NOT TEARFUL. WILL CONTINUE TO MONITOR.
--- NOTE | 2019-07-23 17:46 | NUR ---
ABAT AMBULATING IN HALLWAY. PATIENT APPEARS CALM NOT CRYING.
--- NOTE | 2019-07-23 19:59 | NUR ---
PATIENT REQUESTED TO LEAVE AMA. PATIENT IS ALERT AND ORIENTED. MOTHER AT BEDSIDE. MIKE SCHNEIDER APN NOTIFIED. PATIENT SIGNED AMA PAPERWORK. TELEMETRY REMOVED AND RETURNED TO SPECIAL CERTIFICATE DICTATOR. IV REMOVED CATHETER INTACT.
--- NOTE | 2019-07-24 08:36 | MORECARE ---
CASE MANAGEMENT DISCHARGE SUMMARY PATIENT: BENJY CONNOLLY UNIT: [id number] ADM DATE: 07/22/19 AGE: 23 : 95 SEX: F ROOM/BED: D.2123 AUTHOR: AIDEN BERMAN PHYSICIAN: REFERRING PHYSICIAN: VERONICA GOLDBERG MD DATE OF SERVICE: 07/24/19 Discharge Plan Patient Name: BENJY CONNOLLY Facility: [facility]:[place] : 1995 Planned Disposition: Left Against Medical Advice Anticipated Discharge Date: 07/23/19 Discharge Date: 07/23/2019 Expected LOS: 1 Initial Reviewer: [email or web address] Initial Review Date: 07/24/2019 Generated: 07/24/19 9:35 am Patient Name: BENJY CONNOLLY Page 36713 at 0836 All edits/amendments must be made on the electronic document DICTATION DATE: 07/24/19834 BUSINESS OPERATIONS SPECIALIST: DM 07/24/1935 RPT#: [id number] DC DATE:07/23/19 STATUS: DIS IN [facility] [address] [place] [address] END OF REPORT
== END 2019-07-23 20:04 | disposition left against medical advice (07) | DRG 202 ==
LOC: D.ER 16:14 → D.M2 20:21 → D.SDCHOLD 07-23 13:47 → D.M2 07-23 20:04
PROVIDERS: Emergency Medicine; Family Medicine; ADMIT Family Medicine; ATTEND Family Medicine
DX: J45.901 Unspecified asthma with (acute) exacerbation (principal); J18.9 Pneumonia, unspecified organism; F17.213 Nicotine dependence, cigarettes, with withdrawal; E87.6 Hypokalemia; E03.9 Hypothyroidism, unspecified; F41.8 Other specified anxiety disorders; F15.90 Other stimulant use, unspecified, uncomplicated

== ENCOUNTER 2019-11-26 05:37 | Day surgery (SDC) | payer BC ==
[~2019-11-26] VITALS: Ht 170.2 cm; Wt 99.8 kg
[~2019-11-26 05:37] MED LIST changes: +BUPRENORPHIN-N1 EACH; +TRILOGY
[2019-11-26 06:08] LABS: HEMATOCRIT 40.9 % (36.0-48.0); HEMOGLOBIN 13.6 g/dL (12-16); MCH 29.2 pg (26.0-34.0); MCHC 33.3 g/dL (31.0-37.0); MCV 87.8 fL (80.0-100.0); MEAN PLATELET VOLUME 9.3 fL (7.4-10.4); RBC 4.66 10x6/uL (4.00-5.40); RDW 12.7 % (11.5-14.5); WBC 7.3 10x3/uL (4.8-10.8)
[2019-11-26 06:25] LABS: HCG SERUM NEGATIVE (NEGATIVE)
[2019-11-26 07:01] VITALS: BP 115/70; Ht 170.2 cm; Wt 99.8 kg
[2019-11-26] MEDS ORDERED: HYDROCODON-ACE1 EA10 PO (08:56)
--- NOTE | 2019-11-26 09:25 | OP ---
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 PROCEDURE: De Quervain's release of the left wrist. SURGEON: Deann Yan MD WEATHERIZATION CREW LEADER: Dipak Shay. INTRAOPERATIVE COMPLICATIONS: None. SUMMARY OF PATHOLOGIC FINDINGS: The patient had a recurrent stenosing tenosynovitis of the left wrist almost exactly 1 year status post previous de Quervain's release. The patient had presented with a very positive Moo test again. OPERATIVE SUMMARY IN DETAIL: After obtaining the appropriate preoperative orthopedic surgery consent as well as anesthetic consultation, evaluation and clearance, the patient was brought to the operating room and placed on the operating table in a supine position. After general laryngeal mask airway was administered, tourniquet was placed on the proximal aspect of left upper extremity. Left upper extremity was then prepped and draped in routine sterile fashion. The arm was elevated and exsanguinated, tourniquet was inflated to 250 mmHg. An incision was made directly over the radial styloid exactly where the prior incision was made. This was taken down to the level of the de Quervain's disease. Incision was then made to release the extensor compartment directly over the radial styloid. The patient did have recurrence of synovitis about the tendon itself. Having completed this, the wound was irrigated and closed with 4-0 Prolene. The area was locally anesthetized with 0.25% Marcaine plain. Sterile dressings were applied. Tourniquet was deflated. The patient was awakened and taken to recovery room in stable condition. All final needle and sponge counts were correct. TRANSINT:[id number] Voice Confirmation ID: [id number] DOCUMENT ID: [id number] DEANN YAN MD at 0925 CC: [id number] DICTATION DATE: 11/26/19 0858 CAT TENDER: 11/26/19 0912 [id number] [place] [address]
--- NOTE | 2019-11-26 09:28 | NUR ---
PT REMAINS ASLEEP WITH LMA IN PLACE. WCTM
--- NOTE | 2019-11-26 09:37 | NUR ---
0932 - PT AWAKENS TO STIMULATION, LMA REMOVED. PT RESPONSIVE 100% SPO2 ON 10L VIA SM.
--- NOTE | 2019-11-26 11:21 | NUR ---
DR. GUEVARA NOTIFIED AND REVIEWED PTS BEHAVIOR AND ASSESSMENT RESULTS. PT IS A LOW RISK PER DR. GUEVARA. DR. GUEVARA STATED TO GIVE RESOURCES TO PT AT TIME OF DISCHARGE. NO FURTHER ORDERS AT THIS TIME. RESOURCES REVIEWED WIHT PT AND SHE VERBALIZIED UNDERSTANDING.
--- NOTE | 2019-11-26 12:55 | NUR ---
1102 IV DC'D. CATHETER TIP INTACT. NO BLEEDING NOTED AT SITE AFTER HOLDING PRESSURE. BANDAID APPLIED.
== END 2019-11-26 11:36 | disposition home or self-care (01) ==
LOC: D.OPS 05:37 → D.PAN 08:45 → D.OPS 08:45
PROVIDERS: Anesthesiology; ATTEND Orthopaedic Surgery
DX: M65.4 Radial styloid tenosynovitis [de Quervain] (principal); J45.909 Unspecified asthma, uncomplicated; M25.532 Pain in left wrist